=== PATIENT | male | born 1960 | race Caucasian/White ===

== ENCOUNTER 2017-02-24 06:44 | Inpatient (IN) | payer OTHER ==
[~2017-02-24] VITALS: Ht 172.7 cm; Wt 104.5 kg
[~2017-02-24 06:44] MED LIST: 0.9% SODIUM CHLORIDE 10 ML SYRINGE IVP ONE; BENA20 PO; EPHEDrine SULFATE 50 MG/ML VIAL IM ONE; FentaNYL CITRATE-PF 100 MCG/2 ML VIAL IVP ONE; HYDR25TA PO; MIDAZOLAM HCL 2 MG/2 ML VIAL IVP ONE; PHENYLEPHRINE HCL 10 MG/ML VIAL IVP ONE; TRAM50TA4 PO
[2017-02-24] MEDS ORDERED: RINGERS SOLUTION,LACTATED 1,000 ML IV ONE ×3 (07:36→10:58)
[2017-02-24] MEDS ORDERED: HYDROmorphone 2 MG/ML SYRINGE IVP PRN (08:45)
[2017-02-24] MEDS ORDERED: MEPERIDINE-PF 25 MG/ML SYRINGE IVP PRN (08:45)
[2017-02-24] MEDS ORDERED: BUPIVACAINE LIPOSOME/PF 1.3%-13.3MG/ML SUSPENSION 20 ML VIAL INJ ONE (08:45)
[2017-02-24] MEDS ORDERED: ZOLPIDEM TARTRATE 5 MG TABLET PO PRN (08:45)
[2017-02-24] MEDS ORDERED: ONDANSETRON HCL 4 MG/2 ML VIAL IVP PRN ×2 (08:45→09:30)
[2017-02-24] MEDS ORDERED: FentaNYL CITRATE-PF 100 MCG/2 ML VIAL IVP PRN (08:45)
[2017-02-24] MEDS ORDERED: CELECOXIB 200 MG CAPSULE PO ONE (08:45)
[2017-02-24] MEDS ORDERED: PROMETHAZINE HCL 25 MG/ML VIAL IM PRN (08:45)
[2017-02-24] MEDS ORDERED: TRANEXAMIC ACID 1,000 MG in DEXTROSE 5%-WATER 50 ML IV ONE (08:45)
[2017-02-24] MEDS ORDERED: CELECOXIB 200 MG CAPSULE ONE (08:48)
[2017-02-24] MEDS ORDERED: ACETAMINOPHEN 1000 MG/ISO-OSM 100 ML IV ONE (08:48)
[2017-02-24] MEDS: ACETAMINOPHEN 1000 MG/ISO-OSM 100 ML IV SCH ×3 (08:50→20:55)
[2017-02-24] MEDS ORDERED: BENZOCAINE/MENTHOL LOZENGE [8 LOZENGES/PACKET] PO PRN (09:30)
[2017-02-24] MEDS ORDERED: DiphenhydrAMINE HCL 50 MG/ML VIAL IVP PRN (09:30)
[2017-02-24] MEDS ORDERED: BISACODYL 10 MG RECTAL RECTAL SUPPOSITORY PR PRN (09:30)
[2017-02-24] MEDS ORDERED: SODIUM CHLORIDE 0.9% 100 ML ONE (10:16)
[2017-02-24 13:05] VITALS: BP 114/78
[2017-02-24] MEDS: SODIUM CHLORIDE 0.45% 1,000 ML IV SCH ×2 (14:40→22:44)
[2017-02-24] MEDS: HYDROmorphone 2 MG/ML SYRINGE IVP PRN ×2 (14:41→18:17)
[2017-02-24 15:00] VITALS: BP 135/80
[2017-02-24] MEDS: CYCLOBENZAPRINE HCL 10 MG TABLET PO PRN (15:50)
[2017-02-24] MEDS: CeFAZolin 1 GM/DEXTROSE 50 ML IV SCH (18:03)
[2017-02-24 18:14] VITALS: BP 139/77
[2017-02-24 19:47] VITALS: BP 127/71
[2017-02-24] MEDS: OXYGEN THERAPY IH SCH ×2 (20:00)
[2017-02-24] MEDS: CELECOXIB 200 MG CAPSULE PO SCH (20:54)
[2017-02-24] MEDS: DOCUSATE SODIUM 100 MG CAPSULE PO SCH (20:54)
[2017-02-24 23:21] VITALS: BP 139/67
[2017-02-25] MEDS: CeFAZolin 1 GM/DEXTROSE 50 ML IV SCH (02:19)
[2017-02-25] MEDS: ACETAMINOPHEN 1000 MG/ISO-OSM 100 ML IV SCH ×2 (03:00→09:31)
[2017-02-25] MEDS: CYCLOBENZAPRINE HCL 10 MG TABLET PO PRN ×2 (03:02→22:39)
[2017-02-25 03:04] VITALS: BP 141/73
[2017-02-25 06:29] LABS: BASOPHILS % (AUTO) 0.4 % (0.0-2.0); EOSINOPHILS % (AUTO) 0.8 % (1.0-6.0); HEMATOCRIT 40.7 % (41-53); HEMOGLOBIN 13.3 g/dL (13.5-17.5); LYMPHOCYTES # (AUTO) 1.9 K/uL (1.0-4.8); LYMPHOCYTES % (AUTO) 14.7 % (22.0-44.0); MEAN CORPUSCULAR HEMOGLOBIN 29.3 pg (26.0-34.0); MEAN CORPUSCULAR HGB CONC 32.7 G/dL (31.0-37.0); MEAN CORPUSCULAR VOLUME 90 fL (80-100); MONOCYTES # (AUTO) 1.1 K/uL (0.1-1.0); NEUTROPHILS % (AUTO) 76.1 % (40.0-70.0); PLATELET COUNT (AUTO) 281 K/uL (150-450); RED BLOOD CELL COUNT(AUTO) 4.54 MIL/uL (4.50-5.90); RED CELL DISTRIBUTION WIDTH 13.1 % (11.5-14.5); WHITE BLOOD COUNT (AUTO) 13.1 K/uL (4.5-11.0)
[2017-02-25 06:41] LABS: ANION GAP 9 mmol/L (8-16); CALCIUM, TOTAL 8.8 mg/dL (8.8-10.5); CARBON DIOXIDE 26 mmol/L (22-29); CHLORIDE 102 mmol/L (98-107); CREATININE 1.09 mg/dL (0.60-1.30); GLOMERULAR FILTR. RATE CALC > 60 mL/min (>60); POTASSIUM 3.6 mmol/L (3.5-5.1); SODIUM SERUM 137 mmol/L (136-145); UREA NITROGEN, BLOOD 14 mg/dL (7-18)
[2017-02-25] MEDS: HYDROmorphone 2 MG/ML SYRINGE IVP PRN (06:49)
[2017-02-25 08:00] VITALS: BP 140/90
[2017-02-25] MEDS: CELECOXIB 200 MG CAPSULE PO SCH ×2 (09:30→20:42)
[2017-02-25] MEDS: BENAZEPRIL HCL 20 MG TABLET PO SCH (09:30)
[2017-02-25] MEDS: HYDROCHLOROTHIAZIDE 25 MG TABLET PO SCH (09:30)
[2017-02-25] MEDS: DOCUSATE SODIUM 100 MG CAPSULE PO SCH ×2 (09:30→20:42)
[2017-02-25] MEDS: RIVAROXABAN 10 MG TABLET PO SCH ×2 (11:00→17:25)
[2017-02-25 12:00] VITALS: BP 151/78
[2017-02-25] MEDS: OxyCODONE HCL/ACETAMINOPHEN 10-325 MG TABLET PO PRN ×2 (14:54→22:39)
[2017-02-25] MEDS ORDERED: RIVA10 PO (15:28)
[2017-02-25] MEDS ORDERED: OXYC-38 PO (15:30)
[2017-02-25 16:00] VITALS: BP 145/90
[2017-02-25] MEDS: OXYGEN THERAPY IH SCH ×2 (20:00)
[2017-02-25 20:29] VITALS: BP 148/79
[2017-02-26 00:12] VITALS: BP 125/83
[2017-02-26] MEDS: CYCLOBENZAPRINE HCL 10 MG TABLET PO PRN (04:41)
[2017-02-26 04:45] VITALS: BP 129/77
[2017-02-26] MEDS: OxyCODONE HCL/ACETAMINOPHEN 10-325 MG TABLET PO PRN ×4 (05:11→14:50)
[2017-02-26 06:41] LABS: BASOPHILS # (AUTO) 0.05 K/uL (0.00-0.20); BASOPHILS % (AUTO) 0.3 % (0.0-2.0); EOSINOPHILS # (AUTO) 0.26 K/uL (0.00-0.70); EOSINOPHILS % (AUTO) 1.93 % (1.0-6.0); HEMATOCRIT 37.2 % (41-53); HEMOGLOBIN 12.3 g/dL (13.5-17.5); LYMPHOCYTES # (AUTO) 2.1 K/uL (1.0-4.8); LYMPHOCYTES % (AUTO) 15.7 % (22.0-44.0); MEAN CORPUSCULAR HEMOGLOBIN 30.3 pg (26.0-34.0); MEAN CORPUSCULAR HGB CONC 33.2 G/dL (31.0-37.0); MEAN CORPUSCULAR VOLUME 91 fL (80-100); MONOCYTES # (AUTO) 1.2 K/uL (0.1-1.0); MONOCYTES % (AUTO) 9.1 % (2.0-9.0); NEUTROPHILS # (AUTO) 9.9 K/uL (1.8-7.7); NEUTROPHILS % (AUTO) 72.9 % (40.0-70.0); PLATELET COUNT (AUTO) 254 K/uL (150-450); RED BLOOD CELL COUNT(AUTO) 4.07 MIL/uL (4.50-5.90); RED CELL DISTRIBUTION WIDTH 13.5 % (11.5-14.5); WHITE BLOOD COUNT (AUTO) 13.5 K/uL (4.5-11.0)
[2017-02-26 08:00] VITALS: BP 154/84
[2017-02-26] MEDS: OXYGEN THERAPY IH SCH ×2 (08:00)
[2017-02-26] MEDS: CELECOXIB 200 MG CAPSULE PO SCH (08:21)
[2017-02-26] MEDS: BENAZEPRIL HCL 20 MG TABLET PO SCH (08:22)
[2017-02-26] MEDS: DOCUSATE SODIUM 100 MG CAPSULE PO SCH (08:22)
[2017-02-26] MEDS: HYDROCHLOROTHIAZIDE 25 MG TABLET PO SCH (08:22)
[2017-02-26] MEDS ORDERED: MUPIROCIN CALCIUM 2% 22 GM OINTMENT NASAL SCH (09:45)
[2017-02-26] MEDS ORDERED: MUPI1OIN4 NS (11:11)
[2017-02-26 11:41] VITALS: BP 123/76
== END 2017-02-26 14:55 | disposition home or self-care (01) | DRG 470 ==
LOC: 4E 06:44
PROVIDERS: ADMIT Orthopaedic Surgery; ATTEND Orthopaedic Surgery
PROC: 0SR903Z Replacement of Right Hip Joint with Ceramic Synthetic Substitute, Open Approach (ICD-10-PCS; principal; 2017-02-24 10:00)
DX: M16.11 Unilateral primary osteoarthritis, right hip (principal); I10 Essential (primary) hypertension; Z82.49 Family history of ischemic heart disease and other diseases of the circulatory system; Z83.3 Family history of diabetes mellitus; Z22.322 Carrier or suspected carrier of Methicillin resistant Staphylococcus aureus
CPT/HCPCS: 72170; 73501; 87081; 88300; 97110; 97116; 97161; 97165; 97530; 97535; C9290; G0238; J0131; J0690; J1170; J2250; J2370; J3010; J3490; J7050; J7060; J7120